=== PATIENT | female | born 1970 | race Caucasian/White ===

== ENCOUNTER → 2021-03-27 11:12 | Outpatient (CLI) | payer BC, SELFPAY ==
[2021-03-27 10:21] VITALS: BMI 30.4
[2021-03-27 13:10] LABS: AST(SGOT) 36 U/L (15-37); Alanine Aminotransfer ALT/SGPT 71 U/L (13-56); Albumin, Serum 3.8 g/dL (3.2-5.0); Alkaline Phosphatase 140 U/L (45-117); Anion Gap 8 (5-15); BUN 10 mg/dL (7-18); BUN/Creat Ratio 10.5 RATIO (10-20); Calcium,Total 9.3 mg/dL (8.5-10.1); Chloride 107 mmol/L (98-107); Cholesterol 281 mg/dL (200); Creatinine, Serum 0.95 mg/dL (0.55-1.02); EST Glomerular Filtration Rate 66 mL/min (>60); Est Glom Filt Rate - Afr Amer 80 mL/min (>60); Follicle Stimulating Hormone 64.3 mIU/mL; Glucose 246 mg/dL (74-106); High Density Lipoprotein 42 mg/dL; Luteinizing Hormone 19.8 mIU/mL; Potassium 3.6 mmol/L (3.5-5.1); Protein, Total 7.8 g/dL (6.4-8.2); Sodium Level 140 mmol/L (136-145); T4 Free Direct 0.93 ng/dL (0.76-1.46); Thyroid Stim Hormone (TSH) 1.36 uIU/mL (0.358-3.74); Triglycerides 204 mg/dL; Very Low Density Lipoprotein 41 mg/dL (5-40)
[2021-03-27 13:18] LABS: Vitamin D,25 Hydroxy 16.9 ng/mL
[2021-03-28 14:27] LABS: Thyroid Peroxidase AB < 9 IU/mL (0-34)
== END ==
LOC: BIMLAB 11:14
PROVIDERS: Referring Provider Internal Medicine Endocrinology, Diabetes & Metabolism; Visit Provider Internal Medicine Endocrinology, Diabetes & Metabolism
DX: E04.9 Nontoxic goiter, unspecified (principal); E55.9 Vitamin D deficiency, unspecified
CPT/HCPCS: 36415; 80053; 80061; 82306; 83001; 83002; 84439; 84443; 86376

== ENCOUNTER → 2021-04-11 08:35 | Outpatient (CLI) | payer BC, SELFPAY ==
[2021-03-27 10:21] VITALS: BMI 30.4
--- NOTE | 2021-04-11 08:39 | US_ITS ---
STUDY: THYROID ULTRASOUND REASON FOR EXAM: Female, 51 years old. Nodular goiter TECHNIQUE: Ultrasound evaluation of the thyroid was performed with real-time and static roldan-scale imaging. COMPARISON: None. FINDINGS: RIGHT LOBE: The right lobe of the thyroid gland measures 4.5 cm x 1.6 cm x 1.8 cm. There is a homogeneous echotexture. There is a heterogeneous solid nodule measuring 6 mm x 6 mm x 4 mm in the midpole of the right thyroid. There is evidence of intranodular and perinodular vascularity. LEFT LOBE: The left lobe of the thyroid gland measures 4.6 cm x 1.3 cm x 1.5 cm. There is a homogeneous echotexture. Multiple small nodules are seen. The largest nodule measures 1.2 sides by 1.3 cm x 1.2 cm. This is in the midportion of the thyroid with increased vascularity A biopsy is recommended. ISTHMUS: The isthmus measures 3 mm. The regional lymph nodes are normal. US/Thyroid IMPRESSION: Multiple small nodules are seen in the left lobe of the thyroid with a dominant nodule measuring 1.2 sides by 1.3 cm x 1.2 cm. This has solid and cystic components and is in the mid pole. Biopsy recommended. Electronically Signed: Lux Celaya MD at 13:09 EDT , Service support ,
--- NOTE | 2021-04-11 09:24 | BD_ITS ---
STUDY: DUAL ENERGY X-RAY ABSORPTIOMETRY / DXA REASON FOR EXAM: Female, 51 years old. Screening TECHNIQUE: Bone Mineral Density (BMD) measurements of lumbar spine and bilateral hips were obtained. COMPARISON: None. FINDINGS: Lumbar Spine (L1-L4): g/cm2 (1.082) / T-score (-0.8) / Z-score (-0.3) Findings are suggestive of normal bone density with a low fracture risk. Left Femur Total: g/cm2 (0.998) / T-score (-0.1) / Z-score (0.4) Left Femoral Neck: g/cm2 (0.970) / T-score (-0.5) / Z-score (0.3) Right Femur Total: g/cm2 (0.975) / T-score (-0.3) / Z-score (0.2) Right Femoral Neck: g/cm2 (0.898) / T-score (-1.0) / Z-score (0.2) BD/Dexa Bone Density Study IMPRESSION: The patient is considered normal as outlined below according to World Efren Organization (WHO) criteria with a low fracture risk. Reference Information: The T-score is the number of standard deviations above or below the standard which is normal for young adults at their peak bone mineral density. The World Health Organization (WHO) interprets the T-scores as follows: Above -1 Normal bone density Between -1 and -2.5 Osteopenia Equal to / or below -2.5 Osteoporosis As a practical clinical guideline, osteopenia may be graded as follows: Mild -1 through -1.5 Moderate -1.6 through -2.0 Severe -2.1 through -2.4 The Z-score is the number of standard deviations above or below age-matched controls. A Z-score of less than -1.5 would be considered abnormal. References: 1. NIH Osteoporosis and Related Bone Diseases www osteo.org 2. International Society for Clinical Densitometry www iscd.org 3. National Osteoporosis Foundation www nof.org Electronically Signed: Lux Celaya MD at 15:26 EDT , Service support ,
== END ==
PROVIDERS: Referring Provider Internal Medicine Endocrinology, Diabetes & Metabolism; Visit Provider Internal Medicine Endocrinology, Diabetes & Metabolism
DX: Z78.0 Asymptomatic menopausal state (principal); E04.9 Nontoxic goiter, unspecified
CPT/HCPCS: 76536; 77080

== ENCOUNTER → 2021-05-02 10:22 | Outpatient (CLI) | payer BC, SELFPAY ==
[2021-05-02 05:49] VITALS: BMI 31.0
--- NOTE | 2021-05-02 14:45 | ASPS_PTH ---
PATIENT: MEKA FUENTES LOC: [facility] U#:[id number] AGE/SX: 55/F ROOM: RE05/02/[address]: Dr. Matt Ennis MD : 1970 BED: DIS: SPEC #: [id number] RECD: 05/03/21 10:16 STATUS: KRYSTAL SELENA #: [id number] TERRIE: 05/02/21 14:[address]: Matt Ennis DEPT: CYTOLOGY RECD BY: Henry Estrella ENTERED: 05/03/21 11:50 SP TYPE: ASPIRATION OTHR DR: No Primary Care Phys Tissues: Thyroid gland, NOS Procedures: Special Stain Group II Cytology Other HEADER OPERATION: Left thyroid fine needle aspiration PRE-OP DIAGNOSIS: Left thyroid nodules TISSUE SUBMITTED: Left thyroid slides x10 DIAGNOSIS CYTOLOGY Left thyroid nodule, FNA (smears): Consistent with benign follicular/colloid nodule with focal cystic changes. Adequate for evaluation. See comment. SJ:jimmy 05/03/2021 COMMENT Correlation with clinical, radiologic findings and appropriate follow up are necessary. CYTOLOGY STUDY Slides are reviewed. CYTOLOGY GROSS Received are ten smears labeled with the patient's name and designated per the requisition as left thyroid. Submitted for staining. / jimmy 05/03/2021 TC:5 CPT: 89074
== END ==
LOC: LABSPEC 05-03 10:22
PROVIDERS: Referring Provider Surgery; Visit Provider Surgery
DX: E04.1 Nontoxic single thyroid nodule (principal)
CPT/HCPCS: 88161; 88313